=== PATIENT | male | born 1985 | race African-American/Black ===

== ENCOUNTER 2016-04-05 11:44 | Emergency (ER) | payer BC ==
--- NOTE | 2016-04-05 14:53 | ER Document Report ---
ED Hand/Wrist Injury - General Chief Complaint: Finger Injury Stated Complaint: RIGHT FOURTH DIGIT PAIN, SWELLING Information source: Patient TRAVEL OUTSIDE OF THE [place] IN LAST 30 DAYS: No - HPI Injury to: Ring finger Where: Home - Related Data Allergies/Adverse Reactions: No Known Allergies Allergy (Verified 04/05/16 12:09) Past Medical History - Social History Smoking Status: Current Every Day Smoker Chew tobacco use (# tins/day): No Frequency of alcohol use: None Drug Abuse: None Family History: CAD, Hyperlipidemia, Hypertension Patient has suicidal ideation: No Patient has homicidal ideation: No Pulmonary Medical History: Reports: Hx Bronchitis, Hx Pneumonia Past Surgical History: Reports: Hx Orthopedic Surgery - hand surgery - Immunizations Hx Diphtheria, Pertussis, Tetanus Vaccination: Yes Review of Systems - Review of Systems Constitutional: No symptoms reported EENT: No symptoms reported Cardiovascular: No symptoms reported Respiratory: No symptoms reported Gastrointestinal: No symptoms reported Genitourinary: No symptoms reported Male Genitourinary: No symptoms reported Musculoskeletal: No symptoms reported Skin: No symptoms reported Hematologic/Lymphatic: No symptoms reported Neurological/Psychological: No symptoms reported Physical Exam - Vital signs Vitals: Temp Pulse Resp BP Pulse Ox 98.1 F 77 16 133/74 H 100 04/05/16 12:10 04/05/16 12:10 04/05/16 12:10 04/05/16 12:10 04/05/16 12:10 Interpretation: Normal - General General appearance: Appears well, Alert - HEENT Head: Normocephalic, Atraumatic Eyes: Normal Pupils: PERRL - Respiratory Respiratory status: No respiratory distress Chest status: Nontender Breath sounds: Normal Chest palpation: Normal - Cardiovascular Rhythm: Regular Heart sounds: Normal auscultation Murmur: No - Abdominal Inspection: Normal Distension: No distension Bowel sounds: Normal Tenderness: Nontender Organomegaly: No organomegaly - Back Back: Normal, Nontender - Extremities General upper extremity: Normal inspection, Nontender, Normal color, Normal ROM , Normal temperature General lower extremity: Normal inspection, Nontender, Normal color, Normal ROM , Normal temperature, Normal weight bearing. No: Paige's sign Hand: Tender - Neurological Neuro grossly intact: Yes Cognition: Normal Orientation: AAOx4 [place] Coma Scale Eye Opening: Spontaneous Melody Coma Scale Verbal: Oriented [place] Coma Scale Motor: Obeys Commands Melody Coma Scale Total: 15 Speech: Normal Motor strength normal: LUE, RUE, LLE, RLE Sensory: Normal - Psychological Associated symptoms: Normal affect, Normal mood - Skin Skin Temperature: Warm Skin Moisture: Dry Skin Color: Normal Course - Vital Signs Vital signs: Temp Pulse Resp BP Pulse Ox 98.1 F 77 16 133/74 H 100 04/05/16 12:10 04/05/16 12:10 04/05/16 12:10 04/05/16 12:10 04/05/16 12:10 - Diagnostic Test Radiology reviewed: Reports reviewed Discharge - Discharge Clinical Impression: right fourth digit cellulitis Condition: Good Disposition: HOME, SELF-CARE Additional Instructions: Cellulitis You have an infection of your skin and underlying soft tissues called cellulitis. This is due to bacteria, which can enter through any break in the skin, or even through an irritated hair follicle. Untreated, cellulitis will usually worsen. Antibiotics are required. Usually, warm packs or warm soaks, and elevation of the infected area are recommended. You should start getting better within 24 to 36 hours. Most infections respond quickly to the right medication. Follow-up care is important, however, to check for abscess (boil) formation, unsuspected foreign body, or resistant infection. If you develop fever, chills, or if the area of infection is becoming rapidly more swollen or painful, call the doctor at once. Prescriptions: Sulfamethoxazole/Trimethoprim [Septra-Ds 800-160 mg Tablet] 1 tab PO BID #20 tablet
[2016-04-05 15:00] VITALS: BP 115/78
== END 2016-04-05 15:00 | disposition home or self-care (01) ==
LOC: ER 11:44
DX: L03.011 Cellulitis of right finger (principal); F17.210 Nicotine dependence, cigarettes, uncomplicated
CPT/HCPCS: 99283

== ENCOUNTER 2016-05-14 22:04 | Emergency (ER) | payer BC ==
[2016-05-15 03:17] LABS: HEMATOCRIT 40.7 % (37.9-51.0); HEMOGLOBIN 13.5 g/dL (13.5-17.0); HGB HCT DIFFERENCE -0.2; MEAN CORPUSCULAR HEMOGLOBIN 31.4 pg (27.0-33.4); MEAN CORPUSCULAR HGB CONC 33.2 g/dL (32.0-36.0); MEAN CORPUSCULAR VOLUME 95 fl (80-97)
[2016-05-15] MEDS ORDERED: ACETAMINOPHEN 325 MG TABLET PO ONE (03:17)
[2016-05-15] MEDS ORDERED: NORMAL SALINE 1000 ML 1,000 ML IV ONE (03:17)
[2016-05-15 03:38] LABS: BAND NEUTROPHILS % (MANUAL) 1 % (3-5); BASOPHILS % (MANUAL) 0 % (0-2); EOSINOPHILS % (MANUAL) 0 % (0-6); LYMPHOCYTES % (MANUAL) 3 % (13-45); TOTAL CELLS COUNTED 100
[2016-05-15 03:40] LABS: POIKILOCYTOSIS 1+; RBC MORPHOLOGY COMMENT NORMO-CYTIC/CHROMIC; TOXIC VACUOLATION PRESENT
[2016-05-15 03:41] LABS: STOMATOCYTES 2+
[2016-05-15 03:52] LABS: ALANINE AMINOTRANSFERASE 39 U/L (21-72); ALBUMIN 3.8 g/dL (3.5-5.0); ALKALINE PHOSPHATASE 58 U/L (38-126); ANION GAP 10 (5-19); ASPARTATE AMINO TRANSFERASE 30 U/L (17-59); BILIRUBIN,TOTAL 2.1 mg/dL (0.2-1.3); BLOOD UREA NITROGEN 14 mg/dL (7-20); CALCIUM 9.2 mg/dL (8.4-10.2); CARBON DIOXIDE 27 mmol/L (22-30); CHLORIDE 103 mmol/L (98-107); CREATININE RESULT 0.98 mg/dL (0.52-1.25); GLUCOSE 96 mg/dL (75-110); POTASSIUM 3.9 mmol/L (3.6-5.0); SODIUM 139.5 mmol/L (137-145); TOTAL PROTEIN 7.2 g/dL (6.3-8.2)
[2016-05-15] MEDS ORDERED: KETOROLAC TROMETHAMINE INJ/PF 30 MG/1 ML SDV IV ONE (04:29)
--- NOTE | 2016-05-15 04:29 | ER Document Report ---
ED General - General Mode of Arrival: Ambulatory Information source: Patient TRAVEL OUTSIDE OF THE [place] IN LAST 30 DAYS: No COUNTRY TRAVELED TO/FROM: [place] - HPI Patient complains to provider of: cough Associated symptoms: Other - See above <KULDIP HAMILTON - Last Filed: 05/15/16 04:47> <MARSKRYSTAL ANN - Last Filed: 05/15/16 05:43> - General Chief Complaint: Cough Stated Complaint: cough Notes: Patient is a 30 year old male who presents to the emergency department complaining of a cough onset 2 days ago. Patient also complains of vomiting, rhinorrhea, fever, flank pain, and dysuria. Patient denies abdominal pain. Patient has been unable to keep any food down since onset. (KULDIP HAMILTON) - Related Data Allergies/Adverse Reactions: No Known Allergies Allergy (Verified 04/05/16 12:09) Past Medical History - General Information source: Patient - Social History Smoking Status: Current Every Day Smoker Family History: Reviewed & Not Pertinent, CAD, Hyperlipidemia, Hypertension Patient has suicidal ideation: No Patient has homicidal ideation: No Pulmonary Medical History: Reports: Hx Bronchitis, Hx Pneumonia Past Surgical History: Reports: Hx Orthopedic Surgery - hand surgery - Immunizations Hx Diphtheria, Pertussis, Tetanus Vaccination: Yes <KULDIP HAMILTON - Last Filed: 05/15/16 04:47> Review of Systems - Review of Systems Constitutional: See HPI, Fever EENT: No symptoms reported Cardiovascular: No symptoms reported Respiratory: See HPI, Cough Gastrointestinal: See HPI, Vomiting. denies: Abdominal pain Genitourinary: See HPI, Dysuria, Flank pain Male Genitourinary: No symptoms reported Musculoskeletal: No symptoms reported Skin: No symptoms reported Hematologic/Lymphatic: No symptoms reported Neurological/Psychological: No symptoms reported -: Yes All other systems reviewed and negative <KULDIP HAMILTON - Last Filed: 05/15/16 04:47> Physical Exam - Vital signs Interpretation: Febrile - General General appearance: Appears well, Alert - HEENT Head: Normocephalic, Atraumatic Nasal: Clear rhinorrhea - Respiratory Respiratory status: No respiratory distress Chest status: Nontender Breath sounds: Normal Chest palpation: Normal - Cardiovascular Rhythm: Regular Heart sounds: Normal auscultation Murmur: No - Abdominal Inspection: Normal Distension: No distension Bowel sounds: Normal Tenderness: Nontender Organomegaly: No organomegaly - Back Back: Tender - Tenderness to palpation of lateral lower rib cage bilaterally - Extremities General upper extremity: Normal inspection General lower extremity: Normal inspection - Neurological Neuro grossly intact: Yes Cognition: Normal Orientation: AAOx4 Melody Coma Scale Eye Opening: Spontaneous [place] Coma Scale Verbal: Oriented [place] Coma Scale Motor: Obeys Commands Melody Coma Scale Total: 15 Speech: Normal - Psychological Associated symptoms: Normal affect, Normal mood - Skin Skin Temperature: Warm Skin Moisture: Dry Skin Color: Normal <KULDIP HAMILTON - Last Filed: 05/15/16 04:47> Course - Laboratory Result Diagrams: 05/15/16 03:05 05/15/16 03:05 <KULDIP HAMILTON - Last Filed: 05/15/16 04:47> - Laboratory Result Diagrams: 05/15/16 03:05 05/15/16 03:05 <KRYSTAL CREWS - Last Filed: 05/15/16 05:43> - Re-evaluation Re-evalutation: 05/15/16 Patient is a 30-year-old male who comes in with cough, congestion, sore throat, fever, myalgias. Symptoms are consistent with flu. Flu test is negative with the patient has had symptoms for a few days. Chest x-ray within normal limits. Patient had vomiting but no abdominal pain and no tenderness to palpation. Patient feels better at this time and is able to take by mouth. Patient is instructed to take Tylenol and ibuprofen as needed for fever. He'll be given Zofran if he has anymore nausea. Patient denies headache. Agrees with going home. Return if any worsening or concerning symptoms. (KRYSTAL CREWS) - Vital Signs Vital signs: Temp Pulse Resp BP Pulse Ox 100.1 F 106 H 16 105/54 L 100 05/15/16 05:05 05/15/16 02:47 05/15/16 02:47 05/15/16 02:47 05/15/16 02:47 (KULDIP HAMILTON) (KRYSTAL CREWS) - Laboratory Laboratory results interpreted by me: 05/15/16 05/15/16 05/15/16 03:05 03:05 03:05 RBC 4.30 L Seg Neuts % (Manual) 87 H Band Neutrophils % 1 L Lymphocytes % (Manual) 3 L Abs Lymphs (Manual) 0.3 L Total Bilirubin 2.1 H Urine Protein 30 H Urine Urobilinogen 8.0 H (KULDIP HAMILTON) (KRYSTAL CREWS) Discharge <KULDIP HAMILTON - Last Filed: 05/15/16 04:47> <KRYSTAL CREWS - Last Filed: 05/15/16 05:43> - Discharge Clinical Impression: Influenza-like illness Condition: Stable Disposition: HOME, SELF-CARE Instructions: Influenza ([facility]) [id number] Forms: Return to Work Scribe Attestation: 05/15/16 05:42 I personally performed the services described in the documentation, reviewed and edited the documentation which was dictated to the scribe in my presence, and it accurately records my words and actions. (KRYSTAL CREWS) Scribe Documentation - Scribe Written by Scribe:: stalin Kyle, 05/15/16, 0458 acting as scribe for :: Mars <KULDIP HAMILTON - Last Filed: 05/15/16 04:47>
[2016-05-15 04:39] LABS: APPEARANCE,URINE CLEAR; BILIRUBIN,URINE NEGATIVE (NEGATIVE); GLUCOSE, URINE NEGATIVE (NEGATIVE); KETONES,URINE NEGATIVE (NEGATIVE); LEUKOCYTE ESTERASE,URINE NEGATIVE (NEGATIVE); NITRITE,URINE NEGATIVE (NEGATIVE); PROTEIN,URINE 30 mg/dL (NEGATIVE)
[2016-05-15] MEDS ORDERED: RINGERS SOLUTION,LACTATED 1,000 ML IV ONE (04:53)
[2016-05-15] MEDS ORDERED: ONDANSETRON ODT 4 MG TAB (6 TAB/DSPK) PO PRN (05:38)
[2016-05-15 05:54] VITALS: BP 104/48
== END 2016-05-15 06:10 | disposition home or self-care (01) ==
LOC: ER 22:04
DX: R05 Cough (principal); R11.10 Vomiting, unspecified; J34.89 Other specified disorders of nose and nasal sinuses; R50.9 Fever, unspecified; R10.9 Unspecified abdominal pain; R30.0 Dysuria; F17.210 Nicotine dependence, cigarettes, uncomplicated
CPT/HCPCS: 99283; 96374; 36415; 85025; 80053; 81001; 87804; 71020; J1885; J7030; J7120

== ENCOUNTER 2016-05-31 16:00 | Emergency (ER) | payer BC ==
[2016-05-31 16:06] VITALS: BP 116/70
--- NOTE | 2016-05-31 16:07 | ER Document Report ---
ED Medical Screen (RME) - General Stated Complaint: GROIN PAIN Notes: 30 yo male with left inguinal hernia c/o hernia "popping out" today. mild pain. no n/v TRAVEL OUTSIDE OF THE [place] IN LAST 30 DAYS: No COUNTRY TRAVELED TO/FROM: [place] - Related Data Allergies/Adverse Reactions: No Known Allergies Allergy (Verified 05/31/16 16:03) Past Medical History Pulmonary Medical History: Reports: Hx Bronchitis, Hx Pneumonia Renal/ Medical History: Denies: Hx Peritoneal Dialysis Past Surgical History: Reports: Hx Orthopedic Surgery - hand surgery - Immunizations Hx Diphtheria, Pertussis, Tetanus Vaccination: Yes
--- NOTE | 2016-05-31 18:05 | ER Document Report ---
ED GI/ - General Chief Complaint: Hernia Stated Complaint: GROIN PAIN Notes: Patient has a known left inguinal hernia for which he wears a hernia belt. Last night he didn't have his belt on and is hernia came out and it was painful and he did not go to work. He was able to get the hernia back in place, "reduced"., But requires a note from his workplace to get him back to work. Patient's eye having any abdominal pains or nausea or vomiting. No fevers. No UTI symptoms. Patient says that because of his hernia belt, he needs to go to the bathroom to urinate more frequently than they allow them to do at work. He says he needs to go urinate every 2 or 3 hours and he normally only gets to go one time on his 8 hour shift. TRAVEL OUTSIDE OF THE [place] IN LAST 30 DAYS: No COUNTRY TRAVELED TO/FROM: [place] - Related Data Allergies/Adverse Reactions: No Known Allergies Allergy (Verified 05/31/16 16:03) Past Medical History - Social History Smoking Status: Never Smoker Chew tobacco use (# tins/day): No Frequency of alcohol use: None Drug Abuse: None Family History: Reviewed & Not Pertinent, CAD, Hyperlipidemia, Hypertension Patient has suicidal ideation: No Patient has homicidal ideation: No Pulmonary Medical History: Reports: Hx Bronchitis, Hx Pneumonia Past Surgical History: Reports: Hx Orthopedic Surgery - hand surgery - Immunizations Hx Diphtheria, Pertussis, Tetanus Vaccination: Yes Review of Systems - Review of Systems Constitutional: denies: Fever Cardiovascular: denies: Chest pain, Palpitations Respiratory: denies: Cough, Short of breath, Wheezing Gastrointestinal: denies: Abdominal pain, Diarrhea, Nausea, Vomiting Physical Exam - Vital signs Vitals: Temp Pulse Resp BP Pulse Ox 98.6 F 85 16 116/70 96 05/31/16 16:04 05/31/16 16:04 05/31/16 16:04 05/31/16 16:04 05/31/16 16:04 Interpretation: Normal - Notes Notes: PHYSICAL EXAMINATION: GENERAL: Well-appearing, in no acute distress. Vital signs are all normal. HEAD: Atraumatic, normocephalic. ABDOMEN: Soft, nontender. No guarding or rebound. No hernia present at this time. Patient does have some tenderness in the left pubic region which is where he says the hernia protrudes when he strains or coughs. At this time, there is no hernia present. BACK: No tenderness throughout entire back. EXTREMITIES: Normal range of motion without pain. SKIN: Warm, dry, no rashes. Course - Vital Signs Vital signs: Temp Pulse Resp BP Pulse Ox 98.6 F 85 16 116/70 96 05/31/16 16:04 05/31/16 16:04 05/31/16 16:04 05/31/16 16:04 05/31/16 16:04 Discharge - Discharge Clinical Impression: Left inguinal hernia Condition: Stable Disposition: HOME, SELF-CARE Additional Instructions: Hernia You have a hernia. A hernia forms at a weak spot in the abdominal wall. Bowel slips out of the abdominal cavity into the weak spot. Hernias tend to occur in the groin (especially in males), the fold of the thigh, the naval, or at a surgical scar. Surgical repair of the defect is usually necessary. The problem tends to get worse. It's important that you follow up as recommended. For now, you should avoid straining, heavy lifting, and vigorous exercise. Complications occur if the hernia becomes tightly stuck. You should come back immediately if the area becomes increasingly painful, swollen, or discolored, or if you develop abdominal pain and vomiting. You will need to follow-up with a surgeon to get an appointment to get your hernia repaired. I have provided you with the contact information for the local surgery group for you to call for an appointment. Forms: Special Work Note, Return to Work Referrals: [facility] [Provider Group] - Follow up as needed
== END 2016-05-31 18:23 | disposition home or self-care (01) ==
LOC: ER 16:00
DX: K40.90 Unilateral inguinal hernia, without obstruction or gangrene, not specified as recurrent (principal)
CPT/HCPCS: 82962; 99283

== ENCOUNTER 2017-03-14 17:53 | Emergency (ER) | payer SELFPAY ==
[2017-03-14 18:03] VITALS: BP 122/64
--- NOTE | 2017-03-14 18:47 | ER Document Report ---
ED Extremity Problem, Lower - General Chief Complaint: Leg Swelling Stated Complaint: LEG PAIN Time Seen by Provider: 03/14/17 18:46 Mode of Arrival: Ambulatory Information source: Patient Notes: Patient states that over the last couple of days he has had some lower extremity swelling is now better. He also had a bloody nose yesterday but none today. He also states she has had some cough and congestion. In addition he is felt lightheaded and dizzy intermittently. Nothing appears to make symptoms better or worse. No radiation symptoms. They have been moderate. They are intermittent. TRAVEL OUTSIDE OF THE [place] IN LAST 30 DAYS: No COUNTRY TRAVELED TO/FROM: [employer] - Related Data Allergies/Adverse Reactions: No Known Allergies Allergy (Verified 03/14/17 17:56) Home Medications: Current Home Medications No Home Medications 03/14/17 [History] Past Medical History - General Information source: Patient - Social History Smoking Status: Current Every Day Smoker Chew tobacco use (# tins/day): No Frequency of alcohol use: None Drug Abuse: None Family History: Reviewed & Not Pertinent, CAD, Hyperlipidemia, Hypertension Patient has suicidal ideation: No Patient has homicidal ideation: No Pulmonary Medical History: Reports: Hx Bronchitis, Hx Pneumonia Renal/ Medical History: Denies: Hx Peritoneal Dialysis Past Surgical History: Reports: Hx Orthopedic Surgery - hand surgery - Immunizations Hx Diphtheria, Pertussis, Tetanus Vaccination: Yes Review of Systems - Review of Systems Constitutional: Malaise. denies: Chills Cardiovascular: denies: Chest pain, Palpitations Respiratory: Cough. denies: Hemoptysis Gastrointestinal: denies: Diarrhea, Vomiting -: Yes All other systems reviewed and negative Physical Exam - Vital signs Vitals: Temp Pulse Resp BP Pulse Ox 98.8 F 94 14 122/64 98 03/14/17 18:01 03/14/17 18:01 03/14/17 18:01 03/14/17 18:01 03/14/17 18:01 Interpretation: Normal - General General appearance: Appears well, Alert - HEENT Head: Normocephalic, Atraumatic Eyes: Normal Pupils: PERRL - Respiratory Respiratory status: No respiratory distress Chest status: Nontender Breath sounds: Normal Chest palpation: Normal - Cardiovascular Rhythm: Regular Heart sounds: Normal auscultation Murmur: No - Abdominal Inspection: Normal Distension: No distension Bowel sounds: Normal Tenderness: Nontender Organomegaly: No organomegaly - Back Back: Normal, Nontender - Extremities General upper extremity: Normal inspection, Nontender, Normal color, Normal ROM , Normal temperature General lower extremity: Normal inspection, Nontender, Normal color, Normal ROM , Normal temperature, Normal weight bearing. No: Paige's sign - Neurological Neuro grossly intact: Yes Cognition: Normal Orientation: AAOx4 [place] Coma Scale Eye Opening: Spontaneous [place] Coma Scale Verbal: Oriented [place] Coma Scale Motor: Obeys Commands [place] Coma Scale Total: 15 Speech: Normal Motor strength normal: LUE, RUE, LLE, RLE Sensory: Normal - Psychological Associated symptoms: Normal affect, Normal mood - Skin Skin Temperature: Warm Skin Moisture: Dry Skin Color: Normal Course - Vital Signs Vital signs: Temp Pulse Resp BP Pulse Ox 98.8 F 94 14 122/64 98 03/14/17 18:01 03/14/17 18:01 03/14/17 18:01 03/14/17 18:01 03/14/17 18:01
[2017-03-14 19:50] LABS: ABSOLUTE LYMPHOCYTES (AUTO) 1.1 10^3/uL (0.5-4.7); ABSOLUTE MONOCYTES (AUTO) 0.3 10^3/uL (0.1-1.4); BASOPHILS % (AUTO) 0.6 % (0-2); EOSINOPHILS % (AUTO) 0.2 % (0-6); HEMATOCRIT 45.7 % (37.9-51.0); HEMOGLOBIN 15.6 g/dL (13.5-17.0); HGB HCT DIFFERENCE 1.1; LYMPHOCYTES % (AUTO) 25.4 % (13-45); MEAN CORPUSCULAR HEMOGLOBIN 32.5 pg (27.0-33.4); MEAN CORPUSCULAR VOLUME 95 fl (80-97); MONOCYTES % (AUTO) 7.6 % (3-13); RED BLOOD COUNT 4.79 10^6/uL (4.35-5.55); RED CELL DISTRIBUTION WIDTH 13.3 % (11.5-14.0); SEGMENTED NEUTROPHILS % (AUTO) 66.2 % (42-78); WHITE BLOOD COUNT 4.5 10^3/uL (4.0-10.5)
[2017-03-14 20:05] LABS: ALANINE AMINOTRANSFERASE 32 U/L (21-72); ALBUMIN 4.6 g/dL (3.5-5.0); ALKALINE PHOSPHATASE 47 U/L (38-126); ANION GAP 12 (5-19); ASPARTATE AMINO TRANSFERASE 21 U/L (17-59); BILIRUBIN,DIRECT 0.2 mg/dL (0.0-0.4); BLOOD UREA NITROGEN 16 mg/dL (7-20); CALCIUM 9.9 mg/dL (8.4-10.2); CARBON DIOXIDE 29 mmol/L (22-30); CHLORIDE 105 mmol/L (98-107); CREATININE RESULT 0.82 mg/dL (0.52-1.25); GLUCOSE 78 mg/dL (75-110); POTASSIUM 3.9 mmol/L (3.6-5.0); SODIUM 146.1 mmol/L (137-145); TOTAL PROTEIN 7.5 g/dL (6.3-8.2)
--- NOTE | 2017-03-14 22:08 | EKG REPORT ---
SEVERITY:- NORMAL ECG - SINUS RHYTHM : Confirmed by: Debbie Wells 14-Mar-2017 22:08:25
== END 2017-03-14 20:55 | disposition home or self-care (01) ==
LOC: ER 17:53
DX: R42 Dizziness and giddiness (principal); M79.89 Other specified soft tissue disorders; R04.0 Epistaxis; R05 Cough; R09.81 Nasal congestion; F17.200 Nicotine dependence, unspecified, uncomplicated
CPT/HCPCS: 36415; 80053; 85025; 93005; 93010; 99283

== ENCOUNTER 2017-05-02 12:31 | Emergency (ER) | payer SELFPAY ==
[2017-05-02 12:40] VITALS: BP 122/67
--- NOTE | 2017-05-02 13:05 | ER Document Report ---
HPI - HPI Patient complains to provider of: flu symptoms Onset: Yesterday Onset/Duration: Gradual Quality of pain: Achy Pain Level: 5 Context: Patient presents complaining of flulike symptoms. Patient states that symptoms started yesterday. Patient does report recent flu exposure at his place of employment. Patient presents today with headache, cough, diarrhea and fever. Associated Symptoms: Nonproductive cough, Diarrhea, Fever, Headache. denies: Vomiting Exacerbated by: Denies Relieved by: Denies Similar symptoms previously: No Recently seen / treated by doctor: No - ROS ROS below otherwise negative: Yes Systems Reviewed and Negative: Yes All other systems reviewed and negative - CONSTITUTIONAL Constitutional: REPORTS: Fever - EENT EENT: REPORTS: Sore Throat - NEURO Neurology: REPORTS: Headache, Weakness. DENIES: Vision blurred, Dizzinesss / Vertigo - RESPIRATORY Respiratory: REPORTS: Coughing - GASTROINTESTINAL Gastrointestinal: REPORTS: Diarrhea. DENIES: Abdominal Pain, Patient vomiting, Black / Bloody Stools - REPRODUCTIVE Reproductive: DENIES: : - DERM Skin Color: Normal Skin Problems: None Past Medical History - General Information source: Patient - Social History Smoking Status: Current Every Day Smoker Smoking Education Provided: Yes Frequency of alcohol use: None Drug Abuse: None Occupation: [employer] working Family History: Reviewed & Not Pertinent, CAD, Hyperlipidemia, Hypertension Patient has suicidal ideation: No Patient has homicidal ideation: No Pulmonary Medical History: Reports: Hx Bronchitis, Hx Pneumonia Renal/ Medical History: Denies: Hx Peritoneal Dialysis Past Surgical History: Reports: Hx Orthopedic Surgery - hand surgery - Immunizations Hx Diphtheria, Pertussis, Tetanus Vaccination: Yes Vertical Provider Document - CONSTITUTIONAL Agree With Documented VS: Yes Exam Limitations: No Limitations General Appearance: WD/WN, No Apparent Distress - INFECTION CONTROL TRAVEL OUTSIDE OF THE [place] IN LAST 30 DAYS: No - HEENT HEENT: Atraumatic, Normocephalic, Pharyngeal Tenderness. negative: Pharyngeal Erythema, Tympanic Membrane Red, Tympanic Membrane Bulging - NECK Neck: Normal Inspection, Supple. negative: Lymphadenopathy-Left, Lymphadenopathy-Right - RESPIRATORY Respiratory: Breath Sounds Normal, No Respiratory Distress, Chest Non-Tender O2 Sat by Pulse Oximetry: 98 - CARDIOVASCULAR Cardiovascular: Regular Rate, Regular Rhythm, No Murmur - BACK Back: Normal Inspection - MUSCULOSKELETAL/EXTREMETIES Musculoskeletal/Extremeties: JEAN-PIERRE GANNON - NEURO Level of Consciousness: Awake, Alert, Appropriate Motor/Sensory: No Motor Deficit - DERM Integumentary: Warm, Dry, No Rash Course - Re-evaluation Re-evalutation: 05/02/17 13:02 Patient reports positive flu exposure. Patient is within the first 48 hours of onset of symptoms. Discussed with patient efficacy and side effect profile of Tamiflu, patient would like a prescription for this medication at this time. Patient will be given prescription for Tamiflu per CDC guidelines. - Vital Signs Vital signs: Temp Pulse Resp BP Pulse Ox 98.0 F 84 20 122/67 98 05/02/17 12:39 05/02/17 12:39 05/02/17 12:39 05/02/17 12:39 05/02/17 12:39 Discharge - Discharge Clinical Impression: Exposure to influenza, Flu-like symptoms Condition: Stable Disposition: HOME, SELF-CARE Instructions: Influenza ([facility]) Additional Instructions: Return immediately for any new or worsening symptoms Followup with your primary care provider, call tomorrow to make a followup appointment Prescriptions: Naproxen [Naprosyn 250 Nmg Tablet] 1 tab PO BID #14 tablet Oseltamivir Phosphate [Tamiflu 75 mg Capsule] 75 mg PO BID #10 capsule Forms: Return to Work Referrals: [facility] [Provider Group] - Follow up as needed [facility] [Provider Group] - Follow up as needed
== END 2017-05-02 13:20 | disposition home or self-care (01) ==
LOC: ER 12:31
DX: R05 Cough (principal); R19.7 Diarrhea, unspecified; R50.9 Fever, unspecified; R51 Headache; R53.1 Weakness; F17.200 Nicotine dependence, unspecified, uncomplicated; Z20.828 Contact with and (suspected) exposure to other viral communicable diseases; Z87.01 Personal history of pneumonia (recurrent)
CPT/HCPCS: 99283

== ENCOUNTER 2018-07-08 22:47 | Emergency (ER) | payer OTHER, BC ==
[2018-07-09] MEDS ORDERED: LIDOCAINE 5% (700 MG) TRANSDERMAL ADH..PATCH TP ONE (00:38)
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
--- NOTE | 2018-07-09 01:42 | RADIOLOGY REPORT (SQ) ---
CLINICAL HISTORY: pain COMPARISON: None. TECHNIQUE: XR LUMBAR SPINE ANTEROPOSTERIOR, LATERAL, AND OBLIQUES 07/09/2018 12:38 AM CDT FINDINGS: There is no acute fracture. Alignment is anatomic. Disc spaces are maintained. Vertebral body heights are preserved. Soft tissues are unremarkable. IMPRESSION: No acute fracture or subluxation.
[2018-07-09 02:52] VITALS: BP 122/74
== END 2018-07-09 02:00 | disposition home or self-care (01) ==
LOC: ER 22:47
DX: M54.5 Low back pain (principal); V49.50XA Passenger injured in collision with unspecified motor vehicles in traffic accident, initial encounter
CPT/HCPCS: 72110; 99283